=== PATIENT | female | born 1955 | race Caucasian/White ===

== ENCOUNTER → 2016-10-31 | Day surgery (SDC) | payer OTHER, MEDICARE ==
[2016-10-31 12:39] LABS: HCT 36.4 % (37.0-47.0); MCH 31.3 pg (25.0-31.0); MCHC 35.7 g/dL (32.0-36.0); MCV 87.5 fL (78.0-100.0); MPV 9.3 fL (6.0-9.5); RBC 4.16 M/uL (4.20-5.40); RDW 11.7 % (11.5-14.0); WBC 3.4 K/uL (4.0-10.5)
[2016-10-31 12:56] LABS: ALBUMIN 4.5 g/dL (3.4-4.8); BILIRUBIN - TOTAL 0.5 mg/dL (0.1-1.0); CREATININE 0.9 mg/dL (0.5-1.0); GLOBULIN (CALCULATION) 2.9 g/dL (2.2-4.2); POTASSIUM 3.2 mmol/L (3.5-5.1); TOTAL PROTEIN 7.4 g/dL (6.4-8.3)
== END | disposition home or self-care (01) ==
LOC: FAS 10:42
PROVIDERS: Surgery
DX: K29.50 Unspecified chronic gastritis without bleeding (principal); I10 Essential (primary) hypertension; E03.9 Hypothyroidism, unspecified; Z88.8 Allergy status to other drugs, medicaments and biological substances; Z90.710 Acquired absence of both cervix and uterus; Z98.890 Other specified postprocedural states; Z79.899 Other long term (current) drug therapy
CPT/HCPCS: 36415; 80053; 88305; J2704